=== PATIENT | male | born 1985 | race Caucasian/White ===

== ENCOUNTER 2024-06-06 11:05 | Emergency (ER) | payer SELFPAY ==
[2024-06-06 11:13] VITALS: BP 129/87; PULSE 69; RESP 18; TEMP 98.2; BMI 29.3
[2024-06-06] MEDS ORDERED: ACETAMINOPHEN INJECTION 100 ML IVPB ONE (11:56)
[2024-06-06] MEDS ORDERED: KETOROLAC TROMETHAMINE 15 MG/ML VIAL ONE (11:56)
[2024-06-06 12:21] LABS: PH,URINE 5.5 (5.0-8.0); URINE APPEARANCE CLEAR; URINE BILIRUBIN NEGATIVE (NEGATIVE); URINE COLOR YELLOW; URINE GLUCOSE (UA) NEGATIVE (NEGATIVE); URINE KETONE TRACE (NEGATIVE); URINE LEUK ESTERASE NEGATIVE (NEGATIVE); URINE NITRITE NEGATIVE (NEGATIVE); URINE PROTEIN TRACE (NEGATIVE); URINE UROBILINOGEN 0.2 mg/dL (0.2-1.0)
[2024-06-06] MEDS: ACETAMINOPHEN 1000 MG/100 ML BAG IVPB ONE (12:21)
[2024-06-06] MEDS: KETOROLAC TROMETHAMINE 15 MG/ML VIAL IVPUSH ONE (12:22)
[2024-06-06] MEDS: LACTATED RINGERS SOLUTION 1000 ML INFUS.BAG IV ONE (12:22)
[2024-06-06 12:27] LABS: INR 0.99 (0.83-1.09); PROTHROMBIN TIME (PATIENT) 11.2 SEC (9.7-13.0)
[2024-06-06 12:29] LABS: ACTIVATED PTT 36.2 SECONDS (25.2-36.5)
[2024-06-06 12:30] LABS: BASO % 0.1 % (0-2.0); EOS % 1.2 % (0-4.5); HEMATOCRIT 43.4 % (35.4-49); HEMOGLOBIN 14.3 GM/dL (11.7-16.9); LYMPH % 28.1 % (8-40); MCH 30.5 pg (25.7-33.7); MCHC 32.9 g/dl (32.0-35.9); MEAN CELL VOLUME 92.9 fl (80-96); MEAN PLT VOLUME 8.8 fl (7.5-11.1); NEUT % 62.6 % (42.8-82.8); PLATELET COUNT 289 10^3/uL (134-434); RBC 4.67 M/mm3 (4.00-5.60); RDW 13.7 % (11.9-15.9); WHITE BLOOD COUNT 7.2 K/mm3 (4.0-10.0)
[2024-06-06 12:56] LABS: POTASSIUM 4.1 mmol/L (3.5-5.1)
[2024-06-06 12:58] LABS: CALCIUM 9.3 mg/dL (8.5-10.1)
[2024-06-06 12:59] LABS: ALBUMIN 4.2 g/dl (3.4-5.0); BLOOD UREA NITROGEN 12.3 mg/dL (7-18)
[2024-06-06 13:02] LABS: CREATININE 0.9 mg/dL (0.55-1.3)
[2024-06-06 13:03] LABS: BILIRUBIN,TOTAL 0.3 mg/dL (0.2-1); TOT PROT 7.5 g/dl (6.4-8.2)
== END 2024-06-06 15:23 | disposition home or self-care (01) ==
LOC: JER 11:05
PROC: 3E033NZ Introduction of Analgesics, Hypnotics, Sedatives into Peripheral Vein, Percutaneous Approach (ICD-10-PCS; principal; 2024-06-06)
PROC: 3E0333Z Introduction of Anti-inflammatory into Peripheral Vein, Percutaneous Approach (ICD-10-PCS; 2024-06-06)
DX: R10.31 Right lower quadrant pain (principal)
CPT/HCPCS: 36415; 74177-TC; 80053; 81003; 85025; 85610; 85730; 86850; 86900; 86901; 87086; 99285-25; J0131; Q9967